=== PATIENT | female | born 1995 | race Caucasian/White ===

== ENCOUNTER 2017-04-06 10:52 | Emergency (ER) | payer OTHER ==
[2017-04-06 11:10] VITALS: BP 118/67
--- NOTE | 2017-04-06 11:13 | EDM.PDOC ---
ED HPI GENERAL MEDICAL PROBLEM - General Chief Complaint: Upper Extremity Injury/Pain Stated Complaint: [id number] FELL ON HAND/WRIST Time Seen by Provider: 04/06/17 11:12 Source of Information: Reports: Patient, RN, RN Notes Reviewed History Limitations: Reports: No Limitations - History of Present Illness INITIAL COMMENTS - FREE TEXT/NARRATIVE: C/O Rt wrist pain sustained yesterday from a ground level fall. Denies any other injury. No prior Hx of Rt wrist injury or fracture. Onset: Sudden Onset Date: 04/05/17 Duration: Constant Location: Reports: Upper Extremity, Right Quality: Reports: Ache Severity: Severe Improves with: Reports: Immobilization Worsens with: Reports: Movement Context: Reports: Other (fall) Associated Symptoms: Reports: No Other Symptoms Right Wrist Pain Score (Numeric/FACES): 8 - Related Data Allergies Allergy/AdvReac Type Severity Reaction Status Date / Time No Known Allergies Allergy Verified 04/06/17 11:15 Home Meds: Home Meds . [No Known Home Meds] 04/06/17 [History] Past Medical History - Past Health History Medical/Surgical History: Denies Medical/Surgical History Social & Family History - Family History Family Medical History: Noncontributory - Tobacco Use Smoking Status *Q: Never Smoker Second Hand Smoke Exposure: No - Caffeine Use Caffeine Use: Reports: None - Alcohol Use Alcohol Use History: No - Recreational Drug Use Recreational Drug Use: No - Living Situation & Occupation Living situation: Reports: , with Spouse Occupation: Employed Review of Systems - Review of Systems Review Of Systems: ROS reveals no pertinent complaints other than HPI. ED EXAM, GENERAL - Physical Exam Exam: See Below Exam Limited By: No Limitations General Appearance: Alert, WD/WN, No Apparent Distress, Thin Head: Atraumatic, Normocephalic Neck: Normal Inspection Respiratory/Chest: No Respiratory Distress Peripheral Pulses: 3+: Radial (L), Radial (R) Extremities: Normal Capillary Refill, Joint Swelling (mild at dorsal proximal hand and wrist, no visible bruising, no visible deformity), Limited Range of Motion (Rt wrist due to pain). No: Increased Warmth Neurological: Alert, Oriented, No Motor/Sensory Deficits Psychiatric: Normal Mood Skin Exam: Warm, Dry, Intact, Normal Color, No Rash Course - Vital Signs Last Recorded V/S: Last Vital Signs Temp 37.1 C 04/06/17 11:00 Pulse 82 04/06/17 11:00 Resp 16 04/06/17 11:00 BP 118/67 04/06/17 11:00 Pulse Ox 100 04/06/17 11:00 - Orders/Labs/Meds Orders: Active Orders 24 hr Category Date Time Status DME for Discharge [COMM] Routine Oth 04/06/17 12:22 Ordered Meds: Medications Discontinued Medications Generic Name Dose Route Start Last Admin Trade Name Tre PRN Reason Stop Dose Admin Ibuprofen 400 mg 04/06/17 12:22 Motrin PO 04/06/17 12:23 ONETIME ONE - Radiology Interpretation Free Text/Narrative:: Xray Rt wrist: normal per Rad. report. Departure - Departure Time of Disposition: 12:22 Disposition: Home, Self-Care 01 Condition: Good Clinical Impression: Wrist sprain Qualifiers: Encounter type: initial encounter Laterality: right Qualified Code(s): S63.501A - Unspecified sprain of right wrist, initial encounter Hand sprain Qualifiers: Encounter type: initial encounter Laterality: right Qualified Code(s): S63.91XA - Sprain of unspecified part of right wrist and hand, initial encounter - Discharge Information Instructions: Wrist Sprain Forms: ED Department Discharge Additional Instructions: Rest, ice packs, and elevate right wrist to minimize pain and swelling. Use over the counter Ibuprofen (Motrin/Advil) 200mg: Take 2 tablets by mouth every 6 hours as needed for pain or swelling. Take with food. Wear wrist splint as needed for comfort for 5 to 7 days. May remove to wash, shower, and sleep. Follow up in clinic with your primary doctor in 7 to 10 days if not improving as expected. - My Orders Last 24 Hours: My Active Orders 04/06/17 12:22 DME for Discharge [COMM] Routine - Assessment/Plan Last 24 Hours: My Active Orders 04/06/17 12:22 DME for Discharge [COMM] Routine
--- NOTE | 2017-04-06 11:37 | CR ---
Clinical history: 21-year-old female injured right wrist (fall). Interpretation: Soft tissue swelling dorsum of the wrist without sign of underlying carpal bone frac ture. No sign of radiocarpal dislocation. No fracture or dislocation of the 5 metacarpals. No foreign bodi es. Conclusion: No fractures.
[2017-04-06] MEDS ORDERED: Ibuprofen 400 MG Tab PO ONE (12:22)
== END 2017-04-06 12:48 | disposition home or self-care (01) ==
LOC: DL.ED 10:52
DX: S63.501A Unspecified sprain of right wrist, initial encounter (principal); S63.91XA Sprain of unspecified part of right wrist and hand, initial encounter; W18.30XA Fall on same level, unspecified, initial encounter
CPT/HCPCS: 73110; 99283; A9270